=== PATIENT | male | born 1940 | race Caucasian/White ===

== ENCOUNTER → 2017-02-24 | Outpatient (CLI) | payer MEDICARE ==
[~2017-02-24] MED LIST: ASPIRIN ADULT L81 M3 PO; DILTIAZEM180 MG PO; DOXYCYCLINE100 M3 PO; MELOXICAM7.5 MG PO; [UNRECOGNIZED DRUG - OTHER] OD
[2017-02-24 10:15] LABS: BASO # 0.1 10*3/uL (0.0-0.1); BASO % 1.5 % (0.0-1.0); EOS # 0.4 10*3/uL (0.0-0.4); EOS % 5.6 % (1.0-4.0); HEMATOCRIT 43.7 % (42.0-52.0); HEMOGLOBIN 13.9 g/dl (14.0-18.0); LYMPH # 1.6 10*3/uL (1.3-4.4); LYMPH % 23.7 % (27.0-41.0); MEAN CELL VOLUME 91.8 fl (80.0-94.0); MEAN CORPUSCULAR HGB 29.2 pg (27.0-31.0); MEAN CORPUSCULAR HGB CONC 31.8 g/dl (33.0-37.0); MEAN PLATELET VOLUME 9.3 fl (9.6-12.3); MONO # 0.7 10*3/uL (0.1-1.0); MONO % 10.5 % (3.0-9.0); NEUT % 58.4 % (47.0-73.0); PLATELET COUNT AUTOMATED 231 10*3/uL (130-400); RED BLOOD COUNT 4.76 10*6/uL (4.50-5.90); RED CELL DISTRI WIDTH 14.7 % (0-14.5); WHITE BLOOD COUNT 6.8 10*3/uL (4.8-10.8)
[2017-02-24 10:44] LABS: ALBUMIN 3.7 gm/dl (3.1-4.5); FREE THYROXIN INDEX/T7 2.2 (1.4-4.7); THYROXINE (T4) TOTAL 6.9 ug/dl (4.5-12.1); TOTAL PROTEIN 8.5 gm/dL (6.4-8.2)
[2017-02-24 10:49] LABS: THYROID STIM HORMONE (HS) 3.36 uIU/ml (0.358-4.75)
== END | disposition home or self-care (01) ==
LOC: LAB 09:44
PROVIDERS: Internal Medicine
DX: Z12.5 Encounter for screening for malignant neoplasm of prostate (principal); I25.10 Atherosclerotic heart disease of native coronary artery without angina pectoris; I10 Essential (primary) hypertension; E78.2 Mixed hyperlipidemia; E55.9 Vitamin D deficiency, unspecified; N40.1 Benign prostatic hyperplasia with lower urinary tract symptoms; E03.9 Hypothyroidism, unspecified

== ENCOUNTER → 2017-05-14 | Outpatient (CLI) | payer MEDICARE ==
[2017-05-14 12:36] LABS: INTERNATIONAL NORM RATIO 1.3 (2.0-3.5)
== END | disposition home or self-care (01) ==
LOC: LAB 11:32
PROVIDERS: Internal Medicine
DX: I48.91 Unspecified atrial fibrillation (principal)